=== PATIENT | female | born 1940 | race Caucasian/White ===

== ENCOUNTER 2016-08-07 11:11 | Emergency (ER) | payer MEDICARE ==
--- NOTE | ~2016-08-07 | ER ---
PATIENT'S NAME: [facility] AGE: 76 Y [address] ROOM: [place] [address] LOCATION: [facility] ADMIT DATE: 08/07/2016 ER/Outpatient Report DISCHARGE DATE: 08/07/2016 FAMILY PHYSICIAN: Roxanne Mayo MD ATTENDING PHYSICIAN: Tim Senior Admission date and time documented on the medical record. I saw the patient at 1120 hours. CHIEF COMPLAINT: Congestion, just not feeling well. HISTORY OF PRESENT ILLNESS: This patient is a 76-year-old female who has been ill over the past 2 days. She has nasal congestion and a lot of drainage. She had nausea yesterday and vomiting started today. No chest pain. No shortness of breath. No abdominal pain. No diarrhea. No urinary complaints. No headache; eyes, ears, nose, throat, neck, or spine pain. No fall or trauma. She has had a low-grade fever without chills. No lightheadedness, dizziness, syncope, or near syncope. No joint or muscle swelling, redness, or pain. No skin eruptions or rash. No history of neuro changes or psych issues. Does have insulin- dependent diabetes mellitus type 2. HOME MEDICATIONS: See attached medication list. ALLERGIES: NONE. SOCIAL HISTORY: Nonsmoker, nondrinker. SIGNIFICANT PAST MEDICAL HISTORY: Insulin-dependent diabetes mellitus type 2, hypertension, chronic kidney disease stage III, breast cancer, cervical dysplasia, dyslipidemia, osteopenia, obstructive sleep apnea, and peripheral vascular disease. OPERATIONS: Appendectomy, bilateral breast biopsies, cataract extraction, colonoscopy, cervical conization, hip surgery, lipoma excision, and tonsillectomy. REVIEW OF SYSTEMS: All systems reviewed by me are negative with the exception of those discussed in the history of present illness. [facility] AGE: 76 Y [address] ROOM: [place] [address] LOCATION: [facility] ADMIT DATE: 08/07/2016 ER/Outpatient Report DISCHARGE DATE: 08/07/2016 FAMILY PHYSICIAN: Roxanne Mayo MD ATTENDING PHYSICIAN: Tim Senior PHYSICAL EXAMINATION: VITAL SIGNS: Temperature 102 tympanic, pulse 128, respirations 18, blood pressure 219/93, and O2 saturation on room air 95%. HEENT: Head: Normocephalic. Eyes, clear. Ears: Clear TMs bilaterally. Nose, congested. Throat, clear. Mucous membranes moist. NECK: Negative. SPINE: Negative. LUNGS: Clear. Good air flow. No rales, rhonchi, or wheezes. HEART: Regular. Pulses are palpable. ABDOMEN: Soft, nondistended, and nontender. Good bowel tones. No organomegaly or abnormal mass palpable. EXTREMITIES: Intact. NEUROVASCULAR: Intact. SKIN: Clear. No skin eruptions or rash. DIAGNOSTIC DATA: Chest x-ray showed no acute infiltrate or changes. Laboratory: Urinalysis showed rare whites, rare reds, 0-2 epithelial cells, few bacteria, 1+ amorphous material per high-powered field, negative nitrites on dipstick. [place]enza [place] [address], 84 segs, 9 lymphs, 6 monos; hemoglobin is 12.8, hematocrit 38.7, and platelet count 270,000. ProBNP was 164. Lactate was 1.6. Procalcitonin was 0.14. EKG showed no acute ST elevation, ischemic change, or arrhythmia. EMERGENCY DEPARTMENT COURSE: I did give the patient IV normal saline. She was given 2 L IV in the emergency department. She was given acetaminophen 1000 mg for fever. IMPRESSION: 1. Upper respiratory infection with posterior nasal drainage, etiology uncertain, most likely viral. 2. Nausea with vomiting, most likely secondary to posterior nasal drainage. 3. Insulin-dependent diabetes mellitus type 2. 4. Hypertension. 5. Chronic kidney disease, stage III. 6. Dyslipidemia. 7. Obstructive sleep apnea. 8. Peripheral vascular disease. 9. Obesity. PLAN: The patient dismissed home. Observation. Activity as tolerated. Continue present home medications and care. Fluids. Diet as tolerated. Zofran ODT as needed for nausea, vomiting. Nasal saline rinse twice a day. Flonase PATIENT'S NAME: SUJATHA RAMIREZ [facility] AGE: 76 Y [address] ROOM: [place], [place] [address] LOCATION: [facility] ADMIT DATE: 08/07/2016 ER/Outpatient Report DISCHARGE DATE: 08/07/2016 FAMILY PHYSICIAN: Roxanne Mayo MD ATTENDING PHYSICIAN: Tim Senior humidifier. Tylenol or ibuprofen as needed for fever. Follow up with personal physician in 3 to 4 days. Discussion ensued with the patient concerning my findings and recommendations, she understands. MD JAY STILES/janiel /[id number] d: 08/07/162027 t: 08/08/1612, OUTPATIENT REPORT
[2016-08-07 11:46] LABS: BASOPHIL % 0.2 %; EOSINOPHIL % 0.1 %; HEMATOCRIT 38.7 % (33.0-46.0); HEMOGLOBIN 12.8 g/dL (10.0-15.0); IMMATURE GRANULOCYTE # 0.1 K/uL (0.0-0.3); IMMATURE GRANULOCYTE % 0.4 %; LYMPHOCYTE # 1.2 K/uL (0.8-4.0); LYMPHOCYTE % 8.7 %; MCH 29.8 pg (27.0-34.0); MCHC 33.1 gm/dL (32.0-36.5); MCV 90.2 fl (83.0-98.0); MONOCYTE # 0.9 K/uL (0.0-1.0); MONOCYTE % 6.3 %; MPV 9.9 fl (9.4-12.4); NEUTROPHIL # (ANC) 11.4 K/uL (1.8-7.8); NEUTROPHIL % 84.3 %; NRBC % 0 /100WBC (0-0.00); PLATELET COUNT 270 K/uL (150-450); RBC 4.29 M/uL (3.50-5.50); RDW-CV 13.2 % (11.9-14.6); WBC 13.5 K/uL (4.0-11.0)
[2016-08-07 11:53] LABS: INR - (THERAPEUTIC) 0.96 (0.92-1.07); PROTIME 10.1 SECONDS (9.8-11.4); PTT 29 SECONDS (25-32)
[2016-08-07 12:07] LABS: ALBUMIN 3.7 gm/dL (3.5-5.0); ALK PHOS 89 IU/L (33-138); ALT 25 IU/L (12-78); ANION GAP 16.7 (10.0-19.0); AST 16 IU/L (10-40); BLOOD UREA NITROGEN 18 mg/dL (6-24); CHLORIDE 104 mMol/L (96-110); CO2 23 mMol/L (22-32); CREATININE 1.4 mg/dL (0.5-1.1); ESTIMATED GFR (MDRD EQUATION) 37; POTASSIUM 3.7 mMol/L (3.7-5.1); SODIUM 140 mMol/L (135-145); TOTAL BILIRUBIN 0.6 mg/dL (0.0-1.5)
[2016-08-07 13:56] LABS: BILIRUBIN URINE NEGATIVE (NEGATIVE); BLOOD URINE 25 /UL (NEGATIVE); GLUCOSE URINE NEGATIVE (NEGATIVE); KETONE URINE 50 mg/dL (NEGATIVE); LEUKOCYTES URINE NEGATIVE /UL (NEGATIVE); NITRITE URINE NEGATIVE (NEGATIVE); PROTEIN URINE 15 mg/dL (NEGATIVE); UROBILINOGEN URINE NORMAL (NORMAL)
[2016-08-07 14:06] LABS: COLOR URINE YELLOW (YELLOW); TURBIDITY URINE CLEAR (CLEAR)
[2016-08-07 14:10] LABS: WBC URINE RARE #/HPF (NEGATIVE)
[2016-08-07 14:11] LABS: AMORPHOUS URINE 1+ (NEGATIVE); BACTERIA URINE FEW (NEGATIVE); EPITHELIAL URINE 0-2 #/HPF (NEGATIVE); RBC URINE RARE #/HPF (NEGATIVE)
== END 2016-08-07 15:48 | disposition disaster alternative care site (69) ==
LOC: GMED 11:11
PROVIDERS: Emergency Medicine
DX: J06.9 Acute upper respiratory infection, unspecified (principal); R11.2 Nausea with vomiting, unspecified; E11.22 Type 2 diabetes mellitus with diabetic chronic kidney disease; I12.9 Hypertensive chronic kidney disease with stage 1 through stage 4 chronic kidney disease, or unspecified chronic kidney disease; N18.3 Chronic kidney disease, stage 3 (moderate); E78.5 Hyperlipidemia, unspecified; I73.9 Peripheral vascular disease, unspecified; E66.9 Obesity, unspecified; Z90.89 Acquired absence of other organs; Z90.49 Acquired absence of other specified parts of digestive tract; Z79.899 Other long term (current) drug therapy
CPT/HCPCS: J2405; J7030

== ENCOUNTER → 2016-08-07 | Outpatient (CLI) | payer MEDICARE ==
[~2016-08-07] MED LIST: ASPIRIN EC81 MG PO; CPAP INH; GLUCOTROL5 MG PO; LASIX40 MG PO; PRINIVIL (ZESTR20 MG PO; VICTOZA 2-0.6 MG/0.1 SUB-Q; VITAMIN D1000 UNIT PO; ZOCOR40 MG PO; ZOLOFT25 M1 PO; ZOLOFT50 MG PO
== END | disposition disaster alternative care site (69) ==
LOC: GAMB 10:49
DX: R53.1 Weakness (principal); R11.2 Nausea with vomiting, unspecified
CPT/HCPCS: A0422; A0425; A0427

== ENCOUNTER → 2016-08-29 | Outpatient (CLI) | payer MEDICARE | END | disposition disaster alternative care site (69) | LOC: GRAD 08:34 | DX: R13.10 Dysphagia, unspecified (principal); K44.9 Diaphragmatic hernia without obstruction or gangrene ==